=== PATIENT | female | born 1960 | race African-American/Black ===

== ENCOUNTER 2016-11-06 21:15 | Emergency (ER) | payer OTHER ==
[~2016-11-06 21:15] MED LIST: *UNABLE1; AMARYL2 PO; ASAB PO; DIABETES RX PO; GLUCPH PO; LISINOPRIL; LISINOPRIL-HCTZ PO; METFORMIN PO; PRAV10 PO; SIMVASTATIN PO; ZESTORETIC1 TAB PO; ZOCOR; ZOCOR40 PO; [UNRECOGNIZED DRUG - REMARK]
== END 2016-11-07 03:17 | disposition home or self-care (01) ==
LOC: ER 21:15
DX: M54.5 Low back pain (principal); I10 Essential (primary) hypertension; E11.9 Type 2 diabetes mellitus without complications; Z88.2 Allergy status to sulfonamides; Z88.5 Allergy status to narcotic agent; Z88.8 Allergy status to other drugs, medicaments and biological substances; Z79.82 Long term (current) use of aspirin; Z79.84 Long term (current) use of oral hypoglycemic drugs; Z79.899 Other long term (current) drug therapy
CPT/HCPCS: 72100; 99283